=== PATIENT | male | born 1955 | race Caucasian/White ===

== ENCOUNTER 2020-11-03 10:37 | Outpatient (RCR) | payer OTHER, SELFPAY ==
[2020-11-03] MEDS: COVID-19 VACC, MRNA(PFIZER)/PF 30 MCG/0.3 ML SYRINGE IM (10:36)
[2020-11-24] MEDS: COVID-19 VACC, MRNA(PFIZER)/PF 30 MCG/0.3 ML SYRINGE IM (10:30)
== END 2020-11-03 23:59 ==
LOC: IMMUN 10:37
PROVIDERS: PCP Family Medicine; Visit Provider Family Medicine
DX: Z23 Encounter for immunization (principal)
CPT/HCPCS: 0001A; 0002A; 91300

== ENCOUNTER → 2021-02-10 14:49 | Outpatient (CLI) | payer OTHER, SELFPAY ==
--- NOTE | 2021-02-10 14:57 | ART_ITS ---
Reason For Study: Pain in feet Procedure A bilateral lower extremity continuous wave Doppler with analog waveform analysis,segmental pressures,and ankle brachial indexes without exercise. Left Segmental Pressures Left brachial= 116mmHg. Left posterior tibial artery = 148mmHg. Left dorsalis pedis artery = 142mmHg. Left digit = 104 mmHg. The left dorsalis pedis waveforms are triphasic. The left posterior tibial artery waveforms are triphasic. Right Segmental Pressures Right brachial= 115mmHg. Right posterior tibial artery = 180mmHg. Right dorsalis pedis artery = 161mmHg. Right digit = 127 mmHg. The right dorsalis pedis waveforms are triphasic. The right posterior tibial artery waveforms are triphasic. Indices The right ankle brachial index by the dorsalis pedis is 1.39. The right ankle brachial index by the posterior tibial artery is 1.55. The right digital-brachial index is 1.09. The left ankle brachial index by the dorsalis pedis is 1.22. The left ankle brachial index by the posterior tibial artery is 1.28. The left digital-brachial index is 0.90. VL/Lower Ext Art Exam w/o Exercis Interpretation Summary Triphasic Doppler waveforms are noted at ankle level bilaterally. Pulse-volume recordings appear satisfactory at all levels bilaterally. The resting right ankle-brachial index is supra-normal. The resting left ankle-brachial index is normal. Digital-brachial indices are peter l bilaterally. There is evidence of arterial calcification at ankle level on the right. There is no evidence of significant arterial occlusive disease in the lower extremities bilaterally. Ordering Physician: Augustine Proctor Referring Physician: Jabier Aguirre Performed By: Leny Whyte RVT and Student
== END ==
PROVIDERS: PCP Family Medicine; Visit Provider Podiatrist Foot & Ankle Surgery
DX: M79.671 Pain in right foot (principal); M79.672 Pain in left foot; R20.2 Paresthesia of skin
CPT/HCPCS: 93923

== ENCOUNTER → 2021-06-15 16:41 | Outpatient (CLI) | payer OTHER, SELFPAY ==
--- NOTE | 2021-06-15 17:30 | MRI_ITS ---
STUDY: MRI LUMBAR SPINE WITHOUT CONTRAST REASON FOR EXAM: Male, 66 years old. SPONDYLOLISTHESIS TECHNIQUE: Standardized fat and water weighted pulse sequences were obtained in the sagittal and axial planes. COMPARISON: None FINDINGS: T12-L1: Normal endplates. Normal disc height, hydration and morphology. Normal bilateral facet joints. Normal central canal and bilateral lateral recesses. Normal bilateral intervertebral neural foramina. Normal lumbar lordosis. There is no substantial scoliosis. Normal conus medullaris that terminates at the L1/L2. Acute microtrabecular stress reaction of the left pedicle of L5 which can produce pain. L1-2: Normal endplates. Normal disc height, hydration and morphology. Normal bilateral facet joints. Normal central canal and bilateral lateral recesses. Normal bilateral intervertebral neural foramina. L2-3: Mild bilobed disc protrusion produces mild spinal stenosis and mild bilateral neural foraminal stenosis. L3-4: Mild bilateral facet hypertrophy and ligament flavum hypertrophy. Moderate bilobed disc protrusion produces moderate spinal stenosis with moderate right lateral recess stenosis with abutment of the right L4 nerve root, mild left lateral recess stenosis and mild bilateral neural foraminal stenosis. L4-5: Moderate bilateral facet hypertrophy and mild ligament flavum hypertrophy. 2 mm of anterolisthesis of L4 on L5 with a mild broad disc protrusion produces moderate spinal stenosis with moderate bilateral lateral recess stenosis with abutment of the L5 nerve roots bilaterally and mild bilateral neural foraminal stenosis. L5-S1: Normal endplates. Normal disc height, hydration and morphology. Normal bilateral facet joints. Normal central canal and bilateral lateral recesses. Normal bilateral intervertebral neural foramina. Normal visualized sacral ala. There is a left renal cyst. MRI/Spine Lumbar (Routine) IMPRESSION: Multilevel degenerative changes, as described above. Electronically Signed: Ganesh Marcelo MD at 8:44 EDT Tel , Service support ,
== END ==
PROVIDERS: PCP Family Medicine; Referring Provider Nurse Practitioner Acute Care; Visit Provider Nurse Practitioner Acute Care
DX: M43.16 Spondylolisthesis, lumbar region (principal); M48.062 Spinal stenosis, lumbar region with neurogenic claudication
CPT/HCPCS: 72148

== ENCOUNTER → 2022-02-22 | Outpatient (CLI) | payer BC, SELFPAY ==
--- NOTE | 2022-02-22 12:25 | CT_ITS ---
STUDY: CT FACIAL BONES WITHOUT CONTRAST REASON FOR EXAM: Male, 66 years old. CHRONIC SINUSITIS RADIATION DOSAGE (If Supplied By Facility): CTDIvol = ( 33.06 ) mGy, DLP = ( 829.72 ) mGycm TECHNIQUE: The patient was scanned in a multi detector CT scanner. Sagittal and coronal images were reconstructed. Individualized dose optimization techniques were used for this CT. COMPARISON: Comparison is made with prior study dated 08/27/2012. FINDINGS: Normal soft tissue structures. Normal orbital garcia and orbital contents. Normal nasal bones and anterior nasal spine. Normal facial bones. There is no demonstrated fracture. Mild degree of nasal septal deviation with the right side. There is venessa bullosa formation of the left middle turbinate. Normal visualized paranasal sinuses. CT/Sinus/Facial Bone IMPRESSION: No evidence of sinusitis. Mild deviation of the nasal septum towards the right side. 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 Electronically Signed: Rl Mckeon MD at 14:39 EDT ,
[2022-02-22 13:08] LABS: Anion Gap 7 (5-15); BUN 27 mg/dL (7-18); BUN/Creat Ratio 34.3 RATIO (10-20); Calcium,Total 9.4 mg/dL (8.5-10.1); Chloride 108 mmol/L (98-107); Creatinine, Serum 0.79 mg/dL (0.70-1.30); EST Glomerular Filtration Rate 105 mL/min (>60); Est Glom Filt Rate - Afr Amer 127 mL/min (>60); Glucose 123 mg/dL (74-106); Potassium 3.5 mmol/L (3.5-5.1); Sodium Level 142 mmol/L (136-145)
== END | disposition home or self-care (01) ==
LOC: CT 12:14
PROVIDERS: Internal Medicine Cardiovascular Disease; PCP Family Medicine; Visit Provider Otolaryngology
DX: R01.1 Cardiac murmur, unspecified (principal); I35.0 Nonrheumatic aortic (valve) stenosis; E78.2 Mixed hyperlipidemia; I10 Essential (primary) hypertension; J32.8 Other chronic sinusitis
CPT/HCPCS: 36415; 70486; 80048

== ENCOUNTER → 2022-03-01 | Outpatient (CLI) | payer BC, SELFPAY ==
--- NOTE | 2022-02-26 12:36 | HP.PCM_ITS ---
History and Physical Date of Admission: 03/01/22 [facility] [address] [place] [address] OFFICE VISIT Date of Service:? 02/17/22 MR#: [id number] Acct: [id number] Name:LAURENCE DOAN Rep #: [id number] : 1955 Provider: Dr. Collin Rojo MD Age/Sex:? 66/M Location: [facility] [place] Status: Signed HPI HPI History of Present Illness Surgical H&P: Yes Details: This is a 66-year-old white male who presents today for outpatient cardiovascular consultation based upon concerns of cardiac murmur and an abnormal transthoracic echocardiogram concerning for a bicuspid aortic valve with aortic valve stenosis.? According to the patient he was being evaluated preoperatively and was noted to have a cardiac murmur.? A transthoracic echocardiogram was performed through the [facility] system on 08-17-2021.? Per the report the left ventricle was thought to be normal with an LVEF of 55 to 60%.? The mitral valve had a report of no stenosis/regurgitation.? The tricuspid valve had mild regurgitation.? The aortic valve was noted to be moderately thickened and moderately calcified.? An aortic valve area was reported at 1.6 cm?.? A bicuspid morphology cannot be excluded.? There was a comment that the spectral Doppler findings may be underestimating the severity of the aortic valve stenosis. It appears the patient was evaluated on 10-19-[address] [facility] cardiovascular services.? At that time a recommendation was made for a transesophageal echocardiogram.? He states this was initially denied but subsequently approved.? However, he placed such a procedure on hold. The patient states he now presents for another cardiovascular opinion.? He states overall he feels like he is done well on his current medical therapy and dietary therapy.? He does not describe symptoms of classic angina pectoris.? He is not having episodes of acute CHF or pulmonary edema.? There is been no lower extremity peripheral pitting edema.? He denies near syncope or syncope.? However, he states if he does overexert himself he feels that he becomes more tired and fatigued easier than he did in the past. He had an ECG performed in the office today.? He was noted to be in sinus rhythm.? He had no acute electrocardiographic changes. There was a comment in his previous outpatient cardiovascular visit note of QT prolongation.? However the truck despatcher at that time recommended avoidance of medications that may affect the QT prolongation.? At the present time his electrocardiogram does not appear to suggest QT prolongation. He has a history of hyperlipidemia and hypertension.? He has been treating those with diet and medications. He does not recall undergoing any other cardiovascular testing in the past.? He states recently he has undergone a [facility] screening to have his carotid art eries evaluated.? He states he has pursued this manner as he was evaluated by peripheral vascular surgery and was unable to have a carotid artery duplex study performed-based upon insurance issues . Intake Vital Signs ? 01/13/2214:18 02/17/2210:54 02/17/2210:58 Height 5 ft 7 in 5 ft 7 in 5 ft 7 in Weight: 196 lb ? 193 lb 2 oz BMI 30.7 ? 30.2 BP 103/70B ? 100/60 Blood Pressure Location Rt brachial ? Lt brachial Position Sitting ? Sitting Respiration 18 ? 16 Pulse 78 ? 60 Pulse Source Monitor ? Auscultation Temp 96.8 F L ? ? Pulse Oximetry (%) 96 ? ? Oxygen Delivery Method room air ? ? Intake Visit Reasons:?MURMUR/SELF REF. Pressure Vessel Inspector Required: No Accompanied by: Self Allergies No Known Allergies Allergy (Unverified 02/17/22 10:59) Medications dapagliflozin 2.5 mg-metformin ER 1,000 mg tablet,extended release 24h (Xigduo XR) 1 tab PO DAILY 01/13/22 [History Confirmed 02/17/22] gabapentin 300 mg capsule 300 mg PO DAILY 01/13/22 [History Confirmed 02/17/22] ibuprofen 200 mg capsule 200 mg PO DAILY 01/13/22 [History Confirmed 02/17/22] lisinopril 20 mg tablet 20 mg PO DAILY 01/13/22 [History Confirmed 02/17/22] lovastatin 20 mg tablet 20 mg PO DAILY 01/13/22 [History Confirmed 02/17/22] PFSH Medical History? Arthritis Cardiac murmur Diabetes Diabetic neuropathy Essential hypertension Gout History of trigger finger Mixed hyperlipidemia Nonrheumatic aortic (valve) stenosis QT prolongation Type 2 diabetes mellitus Surgical History? History of arthroscopy of left knee History of cataract surgery History of foot surgery History of hydrocelectomy History of lithotripsy History of lumbar fusion History of tonsillectomy History of umbilical hernia repair Status post trigger finger release Family History? Mother Heart diseaseFather Heart diseaseUncle Colon cancer Social History? Smoking Status:? Never smoker alcohol intake:? never substance use type:? does not use caffeine:? Yes Type: carbonated beverages ROS Const Const: Positive for fatigue; Negative for weakness, body ache, fever(s), headache(s), chills, frequent falls, night sweats, daytime sleepiness, difficulty sleeping, excessive sweating, weight gain, weight loss, increased appetite, poor appetite, anorexia or other Eyes Eyes: Negative for blurry vision or double vision ENT ENT: Negative for headache(s), dizziness or balance problems Cardio Chest Pain: No Palpitations: No Edema: None Muscle aches with walking: None Resp Respiratory: Negative for SOB with activity, SOB at rest, SOB orthopnea\SOB lying down, Cough, Coughing up blood/hemoptysis, chest congestion, pain on inspiration, snoring, stridor, wheezing, crackles, paroxysmal nocturnal dyspnea or other Musc Musc: Negative for muscle aches/ myalgia, muscle weakness, joint pain or balance problems Neuro Neuro: Negative for dizziness, lightheadedness, near syncope, syncope, orthostatic symptoms, frequent falls, headache(s), weakness, confusion, memory loss, restless legs, blurry vision, double vision, vertigo, seizures, lack of coordination or other Endo Endo: Positive for fatigue; Negative for excessive sweating Cardiology Exam Const Appearance: cooperative, healthy appearing, comfortable, no acute distress, well developed and well groomed Nutritional Appearance: overweight Orientation: alert, awake and oriented x3 Head Head: normal to inspection, normocephalic and atraumatic Ears: hearing grossly normal bilaterally Nose: external nose normal Face and Sinus: face symmetric Eyes Eyelids: eyelids normal Conjunctivae: conjunctivae normal Pupils: PERRL EOM: EOM intact bilaterally Neck Neck: normal visual inspection and full ROM Carotids: delayed carotid upstroke and bruit Bilateral (Mild) Chest Chest inspection: normal inspection of the chest and normal respiratory effort Auscultation: Bilateral: Clear to Auscultation Cardio Palpation: normal PMI Rate: regular rate Rhythm: regular rhythm Heart sounds: S1 normal and diminished A2 Murmur: Grade 2/6, harsh, mid systolic, crescendo, LLSB, LVOT and sternal notch GI GI: normal to inspection, soft and bowel sounds present Neuro General: patient alert, patient awake, patient oriented x3, gait normal and moves all extremities Skin Skin: no rashes or lesions noted Extremities Pulses: Normal: Right Dorsalis Pedis Pulse, Left Dorsalis Pedis Pulse, Right Posterior Tibial Pulse, Left Posterior Tibial Pulse, Right Radial Pulse and Left Radial Pulse Lower Extremity Edema: None: Bilateral Psych Psychological: normal affect Supplemental Info Supplemental Information Labs: ?? ? No Data to Display Diagnostics: ?? ? Electrocardiogram ? Pulmonary: ?? ? No Data to Display Assessment and Plan Assessment and Plan (1) Cardiac murmur: ?Status:?Acute ?Plan: He does have a cardiac murmur.? It does appear compatible with underlying aortic valve disease/stenosis. (2) Nonrheumatic aortic (valve) stenosis: ?Status:?Acute ?Plan: Based upon his clinical history/examination and his previous objective studies there appears to be underlying aortic valve disease with thickening and calcification and restriction and stenosis. Per the previous transfer thoracic echocardiogram report there was a comment that the severity of the aortic valve stenosis may be underestimated. As noted above there was a recommendation to proceed with further evaluation with transesophageal echocardiogram.? Again he states this was initially denied by his insurance and subsequently approved.? He then placed it on hold. At the present time based upon his symptoms which do include exertional fatigue and his previous objective findings it would not be unreasonable to pursue a transesophageal echocardiogram to further define his aortic valve anatomy and physiology to help guide additional evaluation and/or care. He has been informed that additional evaluation and/or care may eventually lead to consideration for aortic valve replacement either percutaneously or surgical ly. (3) Mixed hyperlipidemia: ?Status:?Acute ?Plan: He will continue risk factor modification medical therapy. (4) Essential hypertension: ?Status:?Acute ?Plan: He will continue his antihypertensive therapy. ? ? ? Orders: Orders 12 Lead EKG performed by [facility] [place] Today E78.2 - Mixed hyperlipidemia, I10 - Essential (primary) hypertension, I35.0 - Nonrheumatic aortic (valve) stenosis, R01.1 - Cardiac murmur, unspecified, R94.31 - Abnormal electrocardiogram [ECG] [EKG] ? Basic Metabolic Profile (BMP) Today E78.2 - Mixed hyperlipidemia, I10 - Essential (primary) hypertension, I35.0 - Nonrheumatic aortic (valve) stenosis, R01.1 - Cardiac murmur, unspecified ? Echo Transesophageal (KALYN) Today E78.2 - Mixed hyperlipidemia, I10 - Essential (primary) hypertension, I35.0 - Nonrheumatic aortic (valve) stenosis, R01.1 - Cardiac murmur, unspecified ? Plan Details Additional Comments: The above was discussed and reviewed with the patient. The KALYN procedure was discussed and viewed with the patient with respect to the risks and benefits. The patient agreed to proceed in this manner at this time. Thank you for allowing me to participate in the care of your patient.? Please don't hesitate to call if any issues arise. This note was generated using a voice recognition system and there may be incorrect words, spelling or punctuation that were not noted when reviewing the office note prior to saving. Follow Up: ? ? 6 Months (PFM ) COVID (Procedure Consent) Procedure Criteria Procedure Criteria: Yes Elective The surgeon/proceduralist and patient have discussed in detail the risk of exposure to and/or potential harm posed by the COVID-19 virus with having a surgery/procedure at this time versus the risk of? delaying the surgery/procedure. It is not possible to know either the risk of delaying the surgery or procedure or chance of getting an infection with perfect accuracy, but a joint decision was made between the patient and the surgeon/proceduralist ?to proceed at this time with the scheduled surgery/procedure as indicated on the consent form. Coding Level of Care Code Off vis,new,level 4 Diagnoses Cardiac murmur? R01.1 Nonrheumatic aortic (valve) stenosis? I35.0 Mixed hyperlipidemia? E78.2 Essential hypertension? I10 Coding Level of Care Code Off vis,new,level 4 Diagnoses Cardiac murmur? R01.1 Nonrheumatic aortic (valve) stenosis? I35.0 Mixed hyperlipidemia? E78.2 Essential hypertension? I10 02/17/22 1206 <Electronically signed by Collin Rojo MD> Date Collin Rojo MD Cosigner Signature: Date (if applicable) CC:? Dr. Kj Sterling MD ~ Assessment & Plan Addt'l Comments I have re-examined the patient. There are no clinical changes since date of exam
--- NOTE | 2022-03-01 08:47 | ECHOTEE_ITS ---
Reason For Study: MURMUR Medication KALYN probe 6VT-D (SN [id number]) passed with minimal difficulty. No complications were noted. Cetacaine Topical Richards given X3 orally. Versed 2 mg given slow IVP. Fentanyl 100 mcg given slow IVP. Performed a rapid injection of agitated mix of 9 cc saline and 1cc air to assess for atrial septal defect. Left Ventricle Normal LV size. Left ventricular systolic function is normal. The estimated ejection fraction is 60 %. No regional wall motion abnormalities noted. Right Ventricle Normal RV size. Normal systolic function. Atria No doppler evidence for ASD. Bubble contrast study negative for right to left interatrial shunt. Normal left atrium. There is no sponatenous contrast in the left atrium. No thrombus is detected in the left atrial appendage. Normal right atrium. There is no sponatenous contrast in the right atrium. No RA/appendage thrombus identified. Mitral Valve There is no mitral annular calcification. Normal mitral valve. Trivial mitral valve insufficiency. Tricuspid Valve Normal tricuspid valve. Trivial tricuspid valve insufficiency. Aortic Valve 2D echocardiographic images of the aortic valve apparatus suggest a bicuspid appearing aortic valve with mild diffuse thickening and moderate to severe calcification involving the fused raphae with an aortic valve area by planimetry of 1.3 cm??. Pulmonic Valve The pulmonic valve is not well visualized. Vessels Mild atherosclerosis of the descending aorta. Pericardium No pericardial effusion. ECHO/Echo Transesophageal (KALYN) Interpretation Summary Left ventricular systolic function is normal. The estimated ejection fraction is 60 %. There is no sponatenous contrast in the left atrium. No thrombus is detected in the left atrial appendage. Trivial mitral valve insufficiency. Trivial tricuspid valve insufficiency. 2D echocardiographic images of the aortic valve apparatus suggest a bicuspid ap pearing aortic valve with mild diffuse thickening and moderate to severe calcification involving the fused raphae with an aortic valve area by planimetry of 1.3 cm??. Bubble contrast study negative for right to left interatrial shunt. Mild atherosclerosis of the descending aorta. Ordering Physician: Collin Rojo Referring Physician: Collin Rojo Performed By: Heather Lopez [facility]
== END | disposition home or self-care (01) ==
PROVIDERS: PCP Family Medicine; Referring Provider Internal Medicine Cardiovascular Disease; Visit Provider Internal Medicine Cardiovascular Disease
DX: R01.1 Cardiac murmur, unspecified (principal); I35.0 Nonrheumatic aortic (valve) stenosis; E78.2 Mixed hyperlipidemia; I10 Essential (primary) hypertension; Z91.89 Other specified personal risk factors, not elsewhere classified
CPT/HCPCS: 87811; 93312; 93320; 93325; A4216

== ENCOUNTER 2022-03-18 05:22 | Day surgery (SDC) | payer BC, SELFPAY ==
[2022-03-18] VITALS (11 sets, daily range): BP systolic 90–109; BP diastolic 43–79; PULSE 59–70; RESP 16–18; TEMP 36.1–37; O2SAT 92–97; BMI 29.3
--- NOTE | 2022-03-18 05:55 | PCM.HP.BLA ---
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 cap 01/13/22 [History Confirmed 01/13/22] lisinopril 20 mg tablet 20 mg PO DAILY 01/13/22 [History Confirmed 01/13/22] lovastatin 20 mg tablet 20 mg PO DAILY 01/13/22 [History Confirmed 01/13/22] PFSH Medical History?(Updated 01/13/22 @ 14:[address] Emilio Kelly MD) Arthritis Diabetes Heart murmur History of trigger finger Surgical History?(Updated 01/13/22 @ 14:17 by Natalia Skinner) History of cataract surgery History of hydrocelectomy History of lithotripsy History of lumbar fusion History of umbilical hernia repair Family History?(Updated 01/13/22 @ 14:17 by Natalia Skinner) Mother Heart diseaseFather Heart diseaseUncle Colon cancer Social History Smoking Status:? Never smoker alcohol intake:? never substance use type:? does not use HPI HPI HPI: LAURENCE LEVINE, is a 66 M who presents to the office today for surgical discussion regarding a colonoscopy.? I have the pleasure of assisting this gentleman on October 28, 2016 with a colonoscopy.? Diverticular disease of the sigmoid colon noted.? 4 mm polyp in the rectum.? Fortunately he feels that otherwise he is doing well.? No bright red blood per rectum or melena.? He is on the keto diet and feels that he is less gassy. July 2021 he had some back surgery and was told there was some aortic valve issue.? He is scheduled to see cardiology in the near future for additional follow-up.? He already has had an echocardiogram.? No history of myocardial infarction or stroke.? No history of DVT. Family history notable for an uncle who had colon cancer. The patient states he also had an additional colonoscopy prior to the 2016 and had a polyp at that setting as well. ROS General General: Yes fatigue; No weight change, appetite, colon cancer, breast cancer or weakness HEENT HEENT: Yes difficulty swallowing, eye surgery and swollen glands; No eye injury or hoarseness Endo Endocrine: Yes diabetes mellitus; No thyroid disease, thyroid cancer, Hair loss, heat intolerance or cold intolerance Skin Skin: No rash or changing moles Breast Breast: No left breast lump, right breast lump, nipple discharge, breast pain, abnormal mammogram, abnormal US or breast enlargement Musc Musculoskeletal: Yes arthritis; No back problems, rheumatoid arthritis, gout or joint pain Cardio Cardiovascular: Yes murmur; No pacemaker, heart disease, atrial fibrillation, high blood pressure, heart attack, heart stent, palpitations, shortness of breat with exertion or chest pain Psych Psychiatric: No depression, anxiety or hearing voices Resp Respiratory: No shortness of breath, No sleep apnea, No cough, No COPD, No asthma, No emphysema and No wheezing Gastro Gastrointestinal: No abdominal pain, No nausea or vomiting, No diarrhea, No constipation, No blood in stool, No acid reflux, No hemorrhoids, No ulcers, No gallbladder problem and No black,tarry stools Errol Hematologic: No blood thinners, No blood disorders, No bleeding, No anemia and No blood clots Neuro Neurologic: No system reviewed and no additional complaints, except as documented, No as per HPI, No abnormal gait, No abnormal hearing, No abnormal movements, No abnormal speech, No behavioral changes, No burning sensations, No confusion, No convulsions, No disequilibrium, No dizziness, No localized weakness, No frequent falls, No headache(s), No lack of coordination, No loss of vision, No memory loss, Yes numbness, No other visual disturbances, No radicular pain, No restless legs, No sensory deficit, No syncope, Yes tingling, No tremor(s), No weakness and No other Exam Const General: cooperative, healthy appearing, comfortable and no acute distress Nutritional Appearance: overweight Orientation: alert and awake [facility] Head: normal to inspection Chest Chest palpation & inspection: normal inspection of the chest Resp Effort & Inspection: normal respiratory effort Auscultation: clear to auscultation bilaterally Cardio Rate: regular rate Rhythm: regular rhythm Other: Bilateral carotids are 3+.? Very soft 1/6 bruits bilateral carotids inferior neck.? I do not detect a cardiac bruit. GI Palpation: soft and no hepatosplenomegaly Auscultation: normal bowel sounds Skin General: no rashes or lesions noted Neuro General: patient alert and patient awake Extrem General: no calf tenderness Psych Appearance: grossly normal Assessment and Plan Assessment and Plan (1) Carotid bruit: ?Status:?Acute ?Qualifiers: ?Laterality:?bilateral? Qualified Code(s):?R09.89 - Other specified symptoms and signs involving the circulatory and respiratory systems (2) Personal history of colonic polyps: ?Status:?Acute ? ? ? Orders:?Orders: ? Carotid Duplex Ultrasound Today R09.89 ?Plan - Dr. Emilio Kelly MD: I recommend to the patient carotid duplex imaging because of the carotid bruits. I recommended the patient a colonoscopy with possible biopsy or polypectomy as indicated.? He did well with previous mod anesthesia.? He has had an opportunity to ask and have questions answered.? We will schedule procedure at his discretion.? I appreciate the ongoing opportunity of assisting with the surgical care. Emilio Kelly M.D., F.A.C.S. The patient pursued a life line screen for his carotid imaging which showed mild carotid disease. Aortic valve 1.3 cm. We will proceed with colonoscopy as indicated. Emilio Kelly M.D., F.A.C.S.
[2022-03-18] MEDS: Lactated Ringers 1,000 ML 100 ML IV (06:15)
[2022-03-18] MEDS: Midazolam 5 MG/ML Syringe (06:30)
[2022-03-18 06:45] LABS: Bedside Glucose 75 mg/dL (74-106)
--- NOTE | 2022-03-18 06:53 | OP.COLON_ITS ---
Patient Name: Mohsen Garibay Procedure Date: 03/18/2022 6:23 AM Date of : 1955 Age: 66 Procedure: Colonoscopy Indications: High risk colon cancer surveillance: Personal history of colonic polyps Providers: Emilio Kelly MD Referring MD: Emilio Kelly MD Medicines: Midazolam 3 mg IV, Meperidine 100 mg IV Patient Profile: Last Colonoscopy: October 2016. Complications: No immediate complications. Procedure: Pre-Anesthesia Assessment: - Prior to the procedure, a History and Physical was performed, and patient medications and allergies were reviewed. The patient's tolerance of previous anesthesia was also reviewed. The risks and benefits of the procedure and the sedation options and risks were discussed with the patient. All questions were answered, and informed consent was obtained. Prior Anticoagulants: The patient has taken no previous anticoagulant or antiplatelet agents. ASA Grade Assessment: II - A patient with mild systemic disease. After reviewing the risks and benefits, the patient was deemed in satisfactory condition to undergo the procedure. After I obtained informed consent, the scope was passed under direct vision. Throughout the procedure, the patient's blood pressure, pulse, and oxygen saturations were monitored continuously. The colonoscope was introduced through the anus and advanced to the cecum, identified by appendiceal orifice and ileocecal valve. The colonoscopy was performed without difficulty. The patient tolerated the procedure well. The quality of the bowel preparation was good. Moderate Sedation: Moderate (conscious) sedation was personally administered by the endoscopist. The following parameters were monitored: oxygen saturation, heart rate, blood pressure, and response to care. Total physician intraservice time was 15 minutes. Scope In: 6:34:56 AM Scope Withdrawal Time 0 hours 8 minutes 27 seconds Scope Out: 6:47:44 AM Total Procedure Duration Time 0 hours 12 minutes 48 seconds Findings: The digital rectal exam findings include non-thrombosed internal hemorrhoids, internal hemorrhoids (Grade I) and enlarged prostate. Scattered diverticula were found in the sigmoid colon. The exam was otherwise without abnormality. Impression: - Non-thrombosed internal hemorrhoids, internal hemorrhoids (Grade I) and enlarged prostate found on digital rectal exam. - Diverticulosis in the sigmoid colon. - The examination was otherwise normal. - No specimens collected. Recommendation: - Discharge patient to home. - Resume previous diet. - Continue present medications. - Repeat colonoscopy in 5 years for surveillance. Procedure Code(s): --- Professional --- 77168, Colonoscopy, flexible; diagnostic, including collection of specimen(s) by brushing or washing, when performed (separate procedure) 44400, 59, Moderate sedation services provided by the same physician or other qualified health career placement services counselor performing the diagnostic or therapeutic service that the sedation supports, requiring the presence of an independent trained observer to assist in the monitoring of the patient's level of consciousness and physiological status; initial 15 minutes of intraservice time, patient age 5 years or older Diagnosis Code(s): --- Professional --- Z86.010, Personal history of colonic polyps K64.0, First degree hemorrhoids N40.0, Benign prostatic hyperplasia without lower urinary tract symptoms K57.30, Diverticulosis of large intestine without perforation or abscess without bleeding CPT copyright 2017 [employer]. All rights reserved. The codes documented in this report are preliminary and upon glaze maker review may be revised to meet current compliance requirements. Emilio Kelly MD 03/18/2022 6:52:19 AM This report has been signed electronically. Number of Addenda: 0 Note Initiated On: 03/18/2022 6:23 AM
--- NOTE | 2022-03-18 06:53 | OP.CCLET_ITS ---
03/18/2022 Kj Sterling Re : Colonoscopy procedure for Mohsen Colvinr Sterling This procedure was performed on Friday, March 18, 2022. My impressions and recommendations are as follows: Impressions : - Non-thrombosed internal hemorrhoids, internal hemorrhoids (Grade I) and enlarged prostate found on digital rectal exam. - Diverticulosis in the sigmoid colon. - The examination was otherwise normal. - No specimens collected. Recommendations : - Discharge patient to home. - Resume previous diet. - Continue present medications. - Repeat colonoscopy in 5 years for surveillance. My findings are described in the full procedure note, which is enclosed. If I can be of further assistance, please feel free to contact me at Doctor phone number(s): Work: . Sincerely, Emilio Kelly MD 03/18/2022 6:52:19 AM This report has been signed electronically.
== END 2022-03-18 07:38 | disposition home or self-care (01) ==
LOC: EN 05:22 → AC 05:24
PROVIDERS: PCP Family Medicine; Referring Provider Surgery; Visit Provider Surgery
PROC: 0DJD8ZZ Inspection of Lower Intestinal Tract, Via Natural or Artificial Opening Endoscopic (ICD-10-PCS; CPT 45378; principal; 2022-03-18 06:25)
DX: K57.30 Diverticulosis of large intestine without perforation or abscess without bleeding (principal); K64.0 First degree hemorrhoids; N40.0 Benign prostatic hyperplasia without lower urinary tract symptoms; Z80.0 Family history of malignant neoplasm of digestive organs; Z79.899 Other long term (current) drug therapy; Z86.010 Personal history of colon polyps
CPT/HCPCS: 45378; 82962; 99152; 99153; J7120

== ENCOUNTER 2023-05-11 07:24 | Emergency (ER) | payer BC, SELFPAY ==
[2023-05-11 07:25] VITALS: BP 138/108; PULSE 74; RESP 18; TEMP 36.6; O2SAT 98; BMI 34.2
--- NOTE | 2023-05-11 07:31 | EX.ED.DYSGE1 ---
HPI History of Present Illness Chief Complaint: Flank Pain PFSH PFSH Medical History Arthritis Cardiac murmur Diabetes Diabetic neuropathy Essential hypertension Gout History of trigger finger Mixed hyperlipidemia Nonrheumatic aortic (valve) stenosis QT prolongation Type 2 diabetes mellitus Home Medications dapagliflozin propan 2.5 mg-metformin ER 1,000 mg tablet,ext rel 24hr (Xigduo XR) 1 tab PO DAILY 01/13/22 [History Last Taken Unknown] lisinopril 20 mg tablet 20 mg PO DAILY 01/13/22 [History Last Taken 03/18/22 04:30] lovastatin 20 mg tablet 20 mg PO DAILY 01/13/22 [History Last Taken Unknown] acetaminophen 500 mg tablet (Tylenol Extra Strength) 2 tab PO Q8H PRN Pain 03/16/22 [History Last Taken Unknown] omeprazole 40 mg capsule,delayed release 1 cap PO DAILY 03/16/22 [History Last Taken 03/18/22 04:30] Allergy/AdvReac Type Severity Reaction Status Date / Time No Known Allergies Allergy Verified 05/11/23 07:27 Family History Mother Heart disease Father Heart disease Uncle Colon cancer Surgical History History of arthroscopy of left knee History of cataract surgery History of foot surgery History of hydrocelectomy History of lithotripsy History of lumbar fusion History of tonsillectomy History of umbilical hernia repair Status post trigger finger release Social History Smoking Status: Never smoker alcohol intake: never substance use type: does not use caffeine: Yes Type: carbonated beverages EXAM Physical Exam Const Vital Signs: 05/11/23 07:25 05/11/23 07:48 Temperature 98 F Temperature Source Temporal Pulse Rate 74 Respiratory Rate 18 Respiratory Effort Normal Non-Labored Respiratory Pattern Normal Blood Pressure 138/108 H Blood Pressure Mean 118 Pulse Ox 98 Oxygen Delivery Method Room Air MDM MDM MDM Narrative Medical decision making narrative: HISTORY OF PRESENT ILLNESS: 67-year-old male here for right flank pain. Notes history remote kidney stone. Notes pain radiates to the groin. Denies any urinary complaints. My back pain red flag REVIEW OF SYSTEMS: Pertinent positives: Flank pain Pertinent negatives: back pain PHYSICAL EXAM: Nursing triage notes reviewed, Vital signs reviewed Constitutional: please see mdm HENT: MMM Eyes: Pupils equal round and reactive to light, Extraocular muscles intact Neck: No stridor, no JVD, full neck ROM Lungs: Clear to auscultation, No wheezing or rales. No increased work of breathing, no conversational dyspnea, no accessory muscle use, no nasal flaring. No respiratory distress noted Heart: Regular rate and rhythm, No murmurs, No rubs and No gallops, 2+ distal pulses (radial, femoral, posterior tibial) in all extremities Abdomen: Soft, there is no tenderness, rigidity, rebound or guarding, no obvious peritoneal signs, no palpable pulsatile abdominal masses, no auscultated abdominal bruit : No CVAT Extremities: No edema Neuro: Intact sensation L1-S1 dermatomal distributions. Intact 5/5 strength in hip flexion (T12-L3). Knee extension (L2-L4). Ankle dorsiflexion (L4-L5). Ankle plantar flexion (S1). Great toe extension (L5). 2+ patellar and Achilles DTRs. Skin: No rash or lesions noted MEDICAL DECISION MAKING: Chief Complaint: Flank pain External records reviewed: Imaging reviewed, KUB x-ray from 2022 shows no calcification in the ureters Factors affecting care: Nephrolithiasis, type 2 diabetes, GERD, hypertension, hyperlipidemia Social determinants of health: Elderly ALL IMAGES (IF OBTAINED) HAVE BEEN PERSONALLY REVIEWED AND INTERPRETED BY MYSELF. [facility] Narrative: The patient was hemodynamically stable, afebrile, nontoxic-appearing. I considered the following differential diagnosis: Nephrolithiasis, pyelonephritis, AAA Obtained a CT scan of the abdomen pelvis which showed no evidence of kidney stones or other acute intra-abdominal pathology. Labs without evidence of systemic inflammation, hepatobiliary pathology, pancreatitis urine was not infected. No evidence of AAA. Gave the patient anti-inflammatory recommendations. Gave return precautions. The patient and/or family, caregivers express understanding. The patient and/or family, caregivers agrees with the plan. Shared decision making: I will have a discussion with the patient and or visitors regarding risk/benefits of further testing or admission. They will be made aware of of the risk/benefits inherent in this decision they will be given the opportunity to voice understanding. Total critical care time today provided was at least 0 minutes. This excludes separately billable procedures. Critical care time (if documented) is secondary to the patient having high probability of clinically significant/life threatening deterioration in the patient's condition which required my urgent intervention. Impression: 1. Acute flank pain 2. Elevated lipase Dispo: Discharge Lab Data Attestation: I reviewed the patient's lab results. Lab results narrative: CBC without leukocytosis, severe anemia, no thrombocytopenia. CMP without evidence of acute kidney injury, significant electrolyte abnormality, anion gap, no evidence hepatobiliary pathology. Lipase elevated however consistent with prior studies Urinalysis shows no evidence of urinary inflammation suggestive of UTI Labs: Laboratory Results - last 24 hr 05/11/23 05/11/23 07:41 09:15 WBC 5.4 RBC 4.96 Hgb 13.8 Hct 43.8 MCV 88.3 MCH 27.8 MCHC 31.5 L RDW Std Deviation 43.2 RDW Coeff of Kavon 13.4 Plt Count 191 MPV 8.7 Immature Gran % (Auto) 0.900 Neut % (Auto) 51.6 Lymph % (Auto) 34.5 [place] % (Auto) 9.5 Eos % (Auto) 2.4 Baso % (Auto) 1.1 H Absolute Neuts (auto) 2.8 Absolute Lymphs (auto) 1.86 Nucleated RBC % 0 Sodium 141 Potassium 3.8 Chloride 109 H Carbon Dioxide 25.0 Anion Gap 7 BUN 29 H Creatinine 0.94 Estim Creat Clear Calc 73.25 Est GFR (MDRD) Af Amer 103 Est GFR (MDRD) Non-Af 86 BUN/Creatinine Ratio 30.9 H Glucose 139 H Calcium 8.7 Total Bilirubin 0.70 Direct Bilirubin 0.18 AST 20 ALT 22 Alkaline Phosphatase 112 Total Protein 6.9 Albumin 3.6 Globulin 3.3 Lipase 234 H Urine Color Yellow Urine Clarity Clear Urine pH 5.0 Ur Specific [place] 1.025 Urine Protein 15 H Urine Glucose (UA) 1000 H Urine Ketones 5 H Urine Occult Blood Negative Urine Nitrite Negative Urine Bilirubin Negative Urine Urobilinogen Normal Ur Leukocyte Esterase Negative Urine RBC 0 SEEN Urine WBC 0-5 SEEN Ur Squamous Epith Cells 0-5 SEEN Urine Bacteria 0 SEEN Urine Mucus 0 SEEN Radiography Diagnostic Testing: Clinical Impression(s) from Imaging Studies Abdomen/Pelvis CT 05/11/23 07:32 IMPRESSION: Bilateral renal cysts. No obstructive uropathy is seen. Electronically Signed: Rl Mckeon MD at 8:54 EDT , Discharge Plan Triage Chief Complaint: Flank Pain ED Provider: Julien Treviño Dx/Rx/DC Orders Clinical Impression: Acute flank pain Prescriptions: No Action lovastatin 20 mg tablet 20 mg PO DAILY Xigduo XR 2.5-1,000 mg tablet, IR - ER, biphasic 24hr 1 tab PO DAILY lisinopril 20 mg tablet 20 mg PO DAILY omeprazole 40 mg capsule,delayed release(DR/EC) 1 cap PO DAILY Patient Comments: Take 1 capsule once a day acetaminophen [Tylenol Extra Strength] 500 mg tablet 2 tab PO Q8H PRN (Reason: Pain) Patient Comments: 1 tablet by mouth as needed for pain Primary Care Provider: Kj Sterling Referrals: Kj Sterling MD [Primary Care Provider] - Activity Restrictions/Additional Instructions: Thank you for trusting us with your care today! Please take Tylenol (2 pills, 650 mg), ibuprofen (2 pills, 400 mg) every 6 hours as needed for pain and fever control. Please return to the emergency department if your symptoms change or worsen. Specifically develop severe abdominal pain, nausea and vomiting, you develop numbness weakness or loss sensation in your lower extremities. You develop bowel or bladder incontinence, urinary retention or decree sensation on your private parts. Please follow with your primary care physician for further outpatient evaluation and management. Disposition Disposition: Home, Self Care
--- NOTE | 2023-05-11 07:32 | CT_ITS ---
STUDY: CT ABDOMEN AND PELVIS WITHOUT CONTRAST REASON FOR EXAM: Male, 67 years old. Kidney Stone, right flank pain RADIATION DOSAGE (If Supplied By Facility): CTDIvol = ( 16.87 ) mGy, DLP = ( 1011.51 ) mGycm TECHNIQUE: Transaxial images were obtained from the dome of the diaphragm to the symphysis pubis without oral contrast, and without intravenous contrast. Sagittal and coronal images were reconstructed. Individualized dose optimization techniques were used for this CT. COMPARISON: None. FINDINGS: Mild degree of increased markings at the lung bases suggestive of scarring. Coronary artery calcification. Normal liver. Normal gallbladder and extrahepatic biliary system. Normal spleen. Normal pancreas. Normal bilateral adrenal glands. 1.2 cm cyst in the lateral midportion of the right kidney. There is a 5.3 cm x 5.4 cm cyst in the upper medial aspect of the left kidney. This extends into its mid and lower poles. There is a small hiatal hernia. Normal small intestine. There are multiple colonic diverticula consistent with diverticulosis. There are surgical clips in the region of the appendix consistent with a prior appendectomy. There is scattered atherosclerotic calcification of the abdominal aorta and its major visceral branches, without a demonstrated aneurysm. Normal inferior vena cava. Normal retroperitoneum. Normal urinary bladder. There are prostatic calcifications. There is evidence of bilateral inguinal hernia repair. There are diffuse degenerative changes of the visualized lumbar spine. Prior laminectomy and fusion at the L4-L5 level. CT/Abdomen/Pelvis without Cont IMPRESSION: Bilateral renal cysts. No obstructive uropathy is seen. Electronically Signed: Rl Mckeon MD at 8:54 EDT ,
[2023-05-11 07:48] LABS: Absolute Lymphocyte Count 1.86 X10^3/uL (0.83-4.51); Absolute Neutrophil Count 2.8 X10^3/uL (2.0-7.7); Basophil# 0.06 X10^3/uL; Basophil% 1.1 % (0-1); Eosinophil# 0.13 X10^3/uL; Eosinophils% 2.4 % (0-5); Hematocrit 43.8 % (40-54); Hemoglobin 13.8 g/dL (13.0-16.5); Lymphocyte # 1.86 X10^3/ul (0.83-4.51); Lymphocyte % 34.5 % (19-41); Mean Corp Hgb Conc 31.5 g/dL (32-36); Mean Corpuscular Hgb 27.8 pg (27.0-32.0); Mean Corpuscular Volume 88.3 fL (80-94); Mean Platelet Vol. 8.7 fl (6.2-12.0); Monocyte# 0.51 X10^3/uL; Monocyte% 9.5 % (0-10); NRBC Flagged by Analyzer 0 % (0-5); Neutrophil # 2.78 X10^3/uL (2.7-7.7); Neutrophil % 51.6 % (47-70); Platelet Count 191 K/mm3 (150-450); RBC Distribution Width CV 13.4 % (11.6-14.6); RBC Distribution Width SD 43.2 fl (35.1-43.9); Red Blood Count 4.96 M/mm3 (4.6-6.2); White Blood Count 5.4 K/mm3 (4.4-11.0)
[2023-05-11] MEDS: Ketorolac 15 MG/ML Vial IV (07:54)
[2023-05-11] MEDS: Ondansetron 4 MG/2 ML Vial IV (07:54)
[2023-05-11 08:07] LABS: Anion Gap 7 (5-15); BUN 29 mg/dL (7-18); BUN/Creat Ratio 30.9 RATIO (10-20); Calcium,Total 8.7 mg/dL (8.5-10.1); Chloride 109 mmol/L (98-107); Creatinine, Serum 0.94 mg/dL (0.70-1.30); EST Glomerular Filtration Rate 86 mL/min (>60); Est Glom Filt Rate - Afr Amer 103 mL/min (>60); Estimated Creatinine Clearance 73.25 ml/min; Glucose 139 mg/dL (74-106); Lipase 234 U/L (13-75); Potassium 3.8 mmol/L (3.5-5.1); Sodium Level 141 mmol/L (136-145)
[2023-05-11 08:08] LABS: AST(SGOT) 20 U/L (15-37); Alanine Aminotransfer ALT/SGPT 22 U/L (16-61); Albumin, Serum 3.6 g/dL (3.2-5.0); Alkaline Phosphatase 112 U/L (45-117); Bilirubin, Direct 0.18 mg/dL (0.00-0.30); Globulin 3.3 g/dL (2.2-4.2); Protein, Total 6.9 g/dL (6.4-8.2)
[2023-05-11 09:22] LABS: Bacteria 0 SEEN /hpf (None Seen); Mucous, Urine 0 SEEN /hpf (<or=2+); Red Blood Cells-Urine 0 SEEN /hpf (0-5)
[2023-05-11 09:25] LABS: Color, Urine Yellow (Yellow); Glucose, Dipstick 1000 mg/dl (Normal); Ketone-Dipstick 5 mg/dl (Negative); Leukocyte Esterase-Dipstick Negative /ul (Negative); Nitrite-Dipstick Negative (Negative); Occult Blood-Urine Negative /ul (Negative); Protein-Dipstick 15 mg/dl (Negative); Specific Gravity, Urine 1.025 (1.002-1.030); Urine Bilirubin Dipstick Negative (Negative); Urine Clarity Clear (Clear); Urine Urobilinogen Normal (Normal)
[2023-05-11 09:32] LABS: Squamous Epithelial Cells - UA 0-5 SEEN /hpf (0-5); White Blood Cells 0-5 SEEN /hpf (0-5)
[2023-05-11 10:04] VITALS: BP 139/85; PULSE 82; RESP 16; O2SAT 97
== END 2023-05-11 10:04 | disposition home or self-care (01) ==
PROVIDERS: Emergency Provider Emergency Medicine; PCP Family Medicine; Visit Provider Emergency Medicine
DX: R10.9 Unspecified abdominal pain (principal); R74.8 Abnormal levels of other serum enzymes
CPT/HCPCS: 74176; 80048; 80076; 81001; 83690; 85025; 96374; 96375; 99284; A4216; J2405

== ENCOUNTER → 2023-06-16 | Outpatient (CLI) | payer BC, SELFPAY ==
--- NOTE | 2023-06-16 13:09 | RAD_ITS ---
STUDY: X-RAY - RIGHT KNEE REASON FOR EXAM: Male, 67 years old. Right knee pain TECHNIQUE: 4 view(s) of the knee. COMPARISON: None. FINDINGS: Normal visualized distal femur. Normal visualized proximal tibia and fibula. Normal proximal tibiofibular articulation. Normal medial femorotibial compartment. Normal lateral femorotibial compartment. There is mild degenerative arthrosis of the patellofemoral articulation. Small joint effusion. RAD/Knee 4 or More Views IMPRESSION: Degenerative arthrosis. Small joint effusion. Electronically Signed: Rl Mckeon MD at 13:27 EDT ,
== END | disposition home or self-care (01) ==
LOC: MTRAD 13:08
PROVIDERS: PCP Family Medicine; Referring Provider Physician Assistant Surgical; Visit Provider Physician Assistant Surgical
DX: S86.911A Strain of unspecified muscle(s) and tendon(s) at lower leg level, right leg, initial encounter (principal)
CPT/HCPCS: 73564

== ENCOUNTER → 2023-12-12 | Outpatient (CLI) | payer BC, SELFPAY ==
--- NOTE | 2023-12-12 12:31 | ECHOD_ITS ---
Reason For Study: Murmur, Bicuspid AV Procedure This was a 2D Doppler, Color Flow transthoracic echocardiogram. Exam performed in department. Left Ventricle Normal LV size. Left ventricular systolic function is normal. The estimated ejection fraction is 75 %. No regional wall motion abnormalities noted. Right Ventricle Normal RV size. Normal systolic function. Atria Normal left atrium. Normal right atrium. Mitral Valve Normal mitral valve. Tricuspid Valve Normal tricuspid valve. Aortic Valve Bicuspid aortic valve. Moderate diffuse aortic valve calcification. Peak aortic valve gradient 45 mmHg. Mean aortic valve gradient 24 mmHg. Moderate aortic stenosis. Pulmonic Valve Normal pulmonic valve. Great Vessels Normal aortic root. The pulmonary artery is normal size. Normal inferior vena cava. Pericardium/Pleural No pericardial effusion. MMode/2D Measurements & Calculations LVIDd: 4.0 cm IVSd: 1.2 cm LVOT diam: 2.3 cm LVIDs: 2.2 cm LVPWd: 1.2 cm LVOT area: 4.3 cm2 RVDd: 3.4 cm FS: 44.7 % Ao root diam: 3.6 cm LAV(MOD-bp): 52.6 ml LVAd ap4: 30.6 cm2 LAV(MOD-bp) Indexed: 24.6 ml/m2 LVLd ap4: 8.7 cm LAV(MOD-sp2): 51.6 ml EDV(MOD-sp4): 90.4 ml LAV(MOD-sp4): 43.4 ml EDV(sp4-el): 90.8 ml LVAs ap4: 13.4 cm2 LVLs ap4: 7.0 cm ESV(MOD-sp4): 24.3 ml ESV(sp4-el): 22.0 ml EF(MOD-sp4): 73.1 % EF(sp4-el): 75.8 % SV(MOD-sp4): 66.0 ml SV(sp4-el): 68.8 ml LA A4 area: 15.8 cm2 LA dimension(2D): 3.6 cm RA A4 area: 11.0 cm2 TAPSE: 2.3 cm Time Measurements MV dec time: 0.28 sec Doppler Measurements & Calculations MV E max tc: 54.4 cm/sec Lat Peak E' Tc: 11.7 cm/sec Med Peak E' Tc: 5.9 cm/sec MV A max tc: 73.3 cm/sec E/E' lat: 4.6 E/E' med: 9.3 MV E/A: 0.74 Ao V2 max: 334.7 cm/sec LV V1 max: 128.8 cm/sec MV dec slope: 197.7 cm/sec2 Ao max P.8 mmHg LV V1 max P.6 mmHg Ao V2 mean: 234.1 cm/sec LV V1 mean P.5 mmHg Ao mean P.2 mmHg LV V1 mean: 88.4 cm/sec Ao V2 VTI: 58.5 cm LV V1 VTI: 24.8 cm AV (velocity ratio): 0.42 MONICA(I,D): 1.8 cm2 MONICA(V,D): 1.6 cm2 SV(LVOT): 106.4 ml PA V2 max: 115.8 cm/sec ECHO/Echo Complete Interpretation Summary Normal LV size. Left ventricular systolic function is normal. The estimated ejection fraction is 75 %. Moderate diffuse aortic valve calcification. Bicuspid aortic valve. Mean aortic valve gradient 24 mmHg. Moderate aortic stenosis. Ordering Physician: Junior Wills Referring Physician: Kj Sterling Performed By: Michelle Ruiz RDCS
== END | disposition home or self-care (01) ==
LOC: CVS 12:31
PROVIDERS: PCP Family Medicine; Referring Provider Nurse Practitioner Family; Visit Provider Nurse Practitioner Family
DX: I35.0 Nonrheumatic aortic (valve) stenosis (principal); I10 Essential (primary) hypertension; E78.2 Mixed hyperlipidemia
CPT/HCPCS: 93306

== ENCOUNTER 2024-01-18 08:03 | Day surgery (SDC) | payer BC, SELFPAY ==
[2024-01-18] VITALS (10 sets, daily range): BP systolic 87–124; BP diastolic 54–84; PULSE 65–82; RESP 16–24; TEMP 36.2–36.8; O2SAT 92–97; BMI 36.0
[2024-01-18] MEDS: Lactated Ringers 1,000 ML 15 ML IV (08:48)
[2024-01-18 09:13] LABS: Bedside Glucose 94 mg/dL (74-106)
[2024-01-18] MEDS: Cefazolin 2 GM in 0.9% Normal Saline (100mL Bag) 100 ML IV (09:15)
[2024-01-18] MEDS: Epinephrine (1 mg/ml) 1 MG/ML VIAL (10:24)
[2024-01-18] MEDS: Bupiv/Epi 0.25% 30 ML Vial (10:25)
--- NOTE | 2024-01-18 11:02 | OP.PCM_ITS ---
Report of Operation Date of Procedure: 01/18/24 Description of Surgical Findings:: Preoperative diagnosis: 1. Right knee medial meniscal root tear 2. Right knee lateral meniscus tear 3. Right knee chondromalacia Postoperative diagnosis: 1. Right knee medial meniscal root tear 2. Right knee chondromalacia Procedure: 1. Right knee medial meniscal root repair with chondroplasty Surgeon: Jayme Chandra DO switchboard operator assistant: Marcelina Arreguin PA-C Anesthesia: General LMA Anesthesiologist: Reuben Seth MD Estimated blood loss: 5 cc Urine output: None recorded Specimen: None Packing/drains: None IV fluids: Per anesthesia record Complications: None apparent Implants: Ar[employer] 4.75 mm PEEK swivel lock suture anchor Indications: This is a 68-year-old male seen in the outpatient setting for right knee pain of approximately 5 months duration. MRI was obtained due to a twisting injury consistent with meniscus tear. MRI demonstrated a meniscal root tear and anterior horn tear of the lateral meniscus as well as chondromalacia. He had minimal degenerative changes noted on x-ray. I recommended surgical invention in the form of right knee arthroscopic medial meniscal root repair, lateral partial meniscectomy and chondroplasty. I reviewed the risks, benefits, alternatives to procedure with the patient at length and he agreed to proceed. Informed consent obtained in the outpatient setting. Description of procedure: Patient identified preoperative holding her by name, correct number, and date of . The operative extremity was marked. All questions were answered to the patient satisfaction. At time of his procedure, patient brought the operative suite positioned supine on standard operating table. All bony prominences well-padded. General anesthesia was administered and LMA was placed. A well-padded pneumatic tourniquet was applied to the operative upper thigh. An arthroscopic leg braswell was placed around the right lower extremity. A well-leg braswell was placed beneath the patient's left thigh. The foot of the bed was dropped 90 degrees. We prepped and draped the right lower extremity in normal, sterile peak fashion. We performed timeout with all parties in attendance in agreement with the side, site, operation be performed. 2 g Ancef was administered by anesthesia staff prior to tourniquet inflation. I then exsanguinated the right lower extremity with Esmarch bandage. Tourniquet was inflated to 250 mmHg for approximately 45 minutes. Esmarch was removed. Standard anterolateral portal was then established 90 degrees of flexion. Blunt tipped trocar was used to enter the knee joint. Knee was filled with normal saline with epinephrine. Arthroscope was then introduced. Patellofemoral joint demonstrated mild grade 1?2 chondromalacia. Medial lateral gutters were unremarkable. Medial compartment was entered with valgus stress. Anterior medial portal was established in standard fashion. Probing the medial meniscus demonstrated full-thickness meniscal root tear. Focal grade III chondromalacia was noted approximately 1 x 1 cm along the medial aspect of the medial femoral condyle. Tibial cartilage demonstrated grade I chondromalacia. Intercondylar notch was examined and ACL was pristine. Lateral compartment was entered with a [id number] stress. The lateral compartment was probed and the meniscus was stable without significant tearing noted. I then returned to the medial compartment. I elected to proceed with meniscal root repair. I debrided the footprint of the meniscus and decorticated with a rasp. 2 fiber link sutures were passed through the posterior horn 3-4 mm from the tear margin with a [employer] meniscal suture passer. Sutures were then retrieved out an accessory far medial portal. I then introduced the drill guide for the tibial tunnel. This was placed at the [place] footprint. 2 cm incision was made along the anterior medial tibial crest. I then drilled to our planned trajectory with a flip cutter. The flip cutter was deployed and a 1 cm socket was established in the subchondral bone. A nitinol wire was then passed through the tibial tunnel after the drill was removed. Sutures were shuttled through the tibial tunnel. Sutures were passed through the eyelet of a swivel lock anchor. Approx i-1 cm distal to our tunnel, I drilled and tapped for the swivel lock. Suture was tensioned within the anchor and the anchor was successfully placed with excellent cortical purchase. Sutures were cut. The meniscus was probed and appeared stable. The knee was anesthetized with 30 cc total quarter percent bupivacaine with epinephrine. Portal sites were closed in interrupted [id number] fashion with 3-0 nylon suture. Bulky sterile compression system was applied. Tourniquet was deflated. Patient was safely awoken the operative suite and extubated. A T ROM brace was placed locked in full extension and set from 0 to 90 degrees. He was transferred to his gurney and subsequent to PACU in stable condition. He underwent femoral nerve block in the PACU to assist with postoperative analgesia. Need for skilled circulation assistant: Marcelina Arreguin PA-C was critical to the outcome of the case. During the course of the procedure the physician circulation assistant played a vital role. Her intimate knowledge of my steps in the procedure aided in safe and expedient completion of the procedure. The PA played a vital role in positioning particularly in obtaining the appropriate positioning. The PA was also vital in the retraction of soft tissues during the exposure and protecting vital structures. The PA was also vital and obtaining fractur meniscus e reduction and assisting with hardware placement. She also played a vital role in closure and brace application with my direct supervision. Postoperative plan: Follow-up in 2 weeks for suture removal Nonweightbearing x 6 weeks Range of motion 0-90 degrees x 6 weeks Physical therapy to start next week Aspirin 81 mg twice daily for DVT prophylaxis x 6 weeks Multimodal pain management in the form of Tylenol, NSAIDs, opioid as prescribed
[2024-01-18 11:42] LABS: Bedside Glucose 125 mg/dL (74-106)
[2024-01-18] MEDS: HYDROcodone Bitartrate/Apap 5/325 Tablet PO (12:22)
--- NOTE | 2024-01-18 13:22 | SUR.PHASEII ---
instructed on trom use. instructed on transfers to chair and car.
== END 2024-01-18 13:25 | disposition home or self-care (01) ==
LOC: SDC 08:03 → AC 08:06
PROVIDERS: PCP Family Medicine; Referring Provider Student in an Organized Health Care Education/Training Program; Visit Provider Student in an Organized Health Care Education/Training Program
PROC: (CPT 29870; principal; 2024-01-18 09:20)
DX: S83.241A Other tear of medial meniscus, current injury, right knee, initial encounter (principal); E11.40 Type 2 diabetes mellitus with diabetic neuropathy, unspecified; S83.281A Other tear of lateral meniscus, current injury, right knee, initial encounter; M94.261 Chondromalacia, right knee; I10 Essential (primary) hypertension; M10.9 Gout, unspecified; E78.00 Pure hypercholesterolemia, unspecified; I35.0 Nonrheumatic aortic (valve) stenosis; Z79.84 Long term (current) use of oral hypoglycemic drugs; Z79.899 Other long term (current) drug therapy; X58.XXXA Exposure to other specified factors, initial encounter
CPT/HCPCS: 29881; 64447; 82962; J7120; J2405